=== PATIENT | female | born 1970 | race Two or more races ===

== ENCOUNTER 2025-03-29 07:35 | Emergency (ER) | payer BC ==
[2025-03-29 08:23] LABS: Glucose, Urine (Dipstick) >=1000 mg/dL (Negative); Leukocyte 100 (Negative); Protein, Urine (Dipstick) 30 mg/dl (Neg-Trace); Specific Gravity, Urine 1.025 (1.005-1.030)
[2025-03-29 09:04] LABS: Bacteria/HPF 2+ HPF (None Seen); CAUTI Indications for Culture Pelvic or flank pain; WBC/HPF Greater Than 50 HPF (0-3)
[2025-03-29 09:09] LABS: #Basophils Less than 0.03 10x3/uL (0.0-0.2); #Eosinophils 0.18 10x3/uL (0.0-0.5); #Monocytes 0.85 10x3/uL (0.0-1.1); #Neutrophils 7.32 10x3/uL (1.5-8.4); %Basophils 0.1 % (0.0-2.0); %Eosinophils 1.5 % (0.0-6.0); %Lymphocytes 30.4 % (18.0-47.0); %Monocytes 7.1 % (0.0-10.0); %Neutrophils 60.7 % (40.0-75.0); Hematocrit 39.9 % (34.9-44.5); Hemoglobin 13.6 g/dL (12.0-15.5); Mean Corpuscular Hemoglobin 31.4 pg (27.0-33.0); Mean Corpuscular Volume 92.1 fL (81.6-98.3); Platelet Count 193 10x3/uL (150-450); Red Blood Cell (RBC) Count 4.33 10x6/uL (3.90-5.03); White Blood Cell (WBC) Count 12.05 10x3/uL (3.5-10.5)
[2025-03-29 09:13] LABS: Urine Culture Reflex Yes Yes
[2025-03-29] MEDS ORDERED: Ketorolac Tromethamine 30 MG (1 mL) VIAL ONE (10:11)
[2025-03-29 11:01] LABS: ALT (SGPT) 76 U/L (Less than 34); AST (SGOT) 38 U/L (11-34); Albumin 3.6 g/dL (3.1-4.5); Alkaline Phosphatase 134 U/L (40-110); Anion Gap 11 mmol/L (10-20); BUN (Urea Nitrogen) 6 mg/dL (9.8-20.1); Bilirubin, Total 0.6 mg/dL (0.3-1.2); Calc. Creatinine Clearance 0 mL/min (70-130); Calcium 8.8 mg/dL (7.8-10.44); Carbon Dioxide 25 mmol/L (22-29); Chloride 104 mmol/L (98-107); Globulin 3.8 g/dL (2.4-3.5); Glucose 249 mg/dL (70-105); Lipase 16 U/L (8-78); Potassium 3.5 mmol/L (3.5-5.1); Sodium 136 mmol/L (136-145)
[2025-03-29] MEDS ORDERED: PROPOFOL 20 ML ONE (12:37)
[2025-03-29] MEDS ORDERED: Bupivacaine HCl 0.5%/Epinephrine 1:200,000/PF 30 ml Vial ONE (12:38)
[2025-03-29] MEDS ORDERED: Lidocaine 1% PF 5 ML VIAL ONE (12:38)
[2025-03-29] MEDS ORDERED: Ondansetron PF 4 MG/2 ML Vial ONE (12:38)
[2025-03-29] MEDS ORDERED: Rocuronium Bromide 10 MG/ML (10ML VIAL) ONE (12:38)
[2025-03-29] MEDS ORDERED: SUCCINYLCHOLINE/SOD CL,ISO/PF 200 MG/10 ML SYRINGE FS ONE (12:56)
[2025-03-29] MEDS ORDERED: SUGAMMADEX SODIUM 200 MG/2 ML VIAL ONE (13:40)
[2025-03-29] MEDS ORDERED: Iopamidol 300 61% 100 ML VIAL FS ONE (13:44)
== END 2025-03-29 11:50 | disposition admitted as inpatient to this hospital (09) ==
LOC: CSHERS 07:35
PROC: 0DTJ4ZZ Resection of Appendix, Percutaneous Endoscopic Approach (ICD-10-PCS; principal; 2025-03-29)
DX: K35.80 Unspecified acute appendicitis (principal); Z90.49 Acquired absence of other specified parts of digestive tract
CPT/HCPCS: 36415; 36416; 74177; 80053; 81001; 83605; 83690; 85025; 87086; 88304; 93005; 96374; 96375; A4649; C1776; J1100; J1815; J1885; J2250; J2405; J2543; J2704; J3010; Q9967